=== PATIENT | female | born 1990 | race Caucasian/White ===

== ENCOUNTER → 2020-02-17 | Outpatient (CLI) | payer OTHER | LOC: COL.LAB 16:20 | DX: Z01.83 Encounter for blood typing (principal); O28.8 Other abnormal findings on antenatal screening of mother; R76.8 Other specified abnormal immunological findings in serum; Z3A.10 10 weeks gestation of pregnancy ==

== ENCOUNTER → 2020-06-30 | Outpatient (CLI) | payer OTHER ==
[~2020-06-30] MED LIST: CALCIUM CARBON650 M2; IBU800 M1 PO; NATURAL IRON65 MG; PRENATAL VITAMI1 TA3 PO; PROCARDIA XL90 MG PO; TYLENOL 500MG500 MG PO
== END ==
LOC: DIA.ED
DX: O24.419 Gestational diabetes mellitus in pregnancy, unspecified control (principal)
CPT/HCPCS: G0108

== ENCOUNTER → 2020-07-11 | Outpatient (CLI) | payer OTHER | LOC: DIA.ED | DX: O24.419 Gestational diabetes mellitus in pregnancy, unspecified control (principal) | CPT/HCPCS: G0108 ==

== ENCOUNTER → 2020-07-25 | Outpatient (CLI) | payer OTHER ==
--- NOTE | 2020-07-25 09:38 | NUR ---
Mailed Behavior change goals sheet to pt at home address.
== END ==
LOC: DIA.ED 08:24 → DIA.EDTELE 09:33
DX: O24.419 Gestational diabetes mellitus in pregnancy, unspecified control (principal)
CPT/HCPCS: G0108

== ENCOUNTER → 2020-08-04 | Outpatient (CLI) | payer OTHER | LOC: DIA.EDTELE 08:30 | DX: O24.419 Gestational diabetes mellitus in pregnancy, unspecified control (principal) | CPT/HCPCS: G0108 ==

== ENCOUNTER 2020-08-08 17:20 | Outpatient (CLI) | payer OTHER ==
[~2020-08-08] VITALS: Ht 157.5 cm; Wt 77.3 kg
[2020-08-08] MEDS ORDERED: NATURAL IRON65 MG (17:47)
[2020-08-08] MEDS ORDERED: PRENATAL VITAMI1 TA3 PO (17:47)
[2020-08-08] MEDS ORDERED: TYLENOL 500MG500 MG PO (17:48)
[2020-08-08] MEDS ORDERED: CALCIUM CARBON650 M2 (17:48)
[2020-08-08 17:58] LABS: COLLECTION METHOD CLEAN CATCH
[2020-08-08 18:00] VITALS: BP 132/84; PULSE 105; TEMP 98.8
--- NOTE | 2020-08-08 18:00 | NUR ---
1725- Pt arrives on unit ambulatory with complaints of elevated BP at work. She was nauseated and have diarrhea last night but that has resolved, appetite suppressed today. Pt states she also had some contractions yesterday and reports them to be occational now. Denies VB, LOF. +FM for both babies but states baby B is harder to feel due to anterior placenta. 1736- EFM and TOCO on and tracing. O2 sat monitor on and tracing maternal HR. Assessment completed. VSS. Plan of care discussed, questions answered. Ice water given. Call light within reach.
[2020-08-08 18:10] LABS: MUCOUS Present /lpf; PH 5 (5-8); URINE APPEARANCE Cloudy; URINE BACTERIA Rare /hpf; URINE BILIRUBIN Negative (NEGATIVE); URINE BLOOD 1+ (NEGATIVE); URINE COLOR Yellow; URINE GLUCOSE Negative (NEGATIVE); URINE KETONE Negative (NEGATIVE); URINE LEUKOCYTE ESTERASE Negative (NEGATIVE); URINE NITRATE Negative (NEGATIVE); URINE PROTEIN(semi-quant) 2+ (NEGATIVE); URINE UROBILINOGEN Negative (NEGATIVE)
[2020-08-08 18:12] LABS: HEMOGLOBIN 11.1 g/dl (12.5-16.0); MEAN CELL VOLUME 98 fl (80.0-100.0); MEAN CORPUSCULAR HEMOGLOBIN 33 pg (27.0-31.0); MEAN CORPUSCULAR HGB CONC 34 g/dl (33.0-37.0); MEAN PLATELET VOLUME 10.9 fl (7.4-10.4); PLATELET COUNT 151 K/mm3 (130-400); RED BLOOD COUNT 3.37 M/mm3 (4.10-5.30); REDCELL DISTRIBUTION WIDTH-CV 14.9 % (11.5-14.5)
[2020-08-08 18:13] LABS: HEMATOCRIT 32.9 % (37.0-47.0)
[2020-08-08 18:26] LABS: BILIRUBIN,TOTAL 0.7 mg/dL (0.0-1.0); CALCIUM 8.3 mg/dL (8.4-10.2); CREATININE, serum 1.05 (0.52-1.25); TOTAL PROTEIN 5.9 gm/dL (6.4-8.2)
[2020-08-08 18:45] LABS: BAND 2 % (0-10); HYPOCHROMIA 1+; LYMPHOCYTE 5 % (20.0-51.0); METAMYELOCYTE 1 % (0-0); MYELOCYTE 1 % (0-0); NEUTROPHILS 86 % (42.0-75.2); PLATELET ESTIMATE NORMAL (NORMAL)
[2020-08-08 19:00] VITALS: BP 121/83; PULSE 103
--- NOTE | 2020-08-08 19:10 | NUR ---
PATIENT AMBULATORY OFF THE UNIT WITH BY HER SIDE. ACCOMPANIED OFF UNIT BY THIS NURSE. PATIENT DISCHARGE INSTRUCTIONS EXPLAINED AND PATIENT VERBALIZED UNDERSTANDING WITH NO FURTHER QUESTIONS. ADVISED TO CALL US OR THE DOCTOR IF SHE HAS ANY FURTHER QUESTIONS OR CONCERNS.
== END 2020-08-08 19:10 | disposition home or self-care (01) ==
LOC: LDRO 17:20 → LDR 17:25 → LDRO 17:25 → LDR 19:10
PROVIDERS: Obstetrics & Gynecology
DX: O13.3 Gestational [pregnancy-induced] hypertension without significant proteinuria, third trimester (principal); Z3A.37 37 weeks gestation of pregnancy
CPT/HCPCS: OP

== ENCOUNTER 2020-08-24 10:42 | Inpatient (IN) | payer OTHER ==
[~2020-08-24] VITALS: Ht 160 cm; Wt 76.4 kg
[2020-08-24] VITALS (9 sets, daily range): BP systolic 134–167; BP diastolic 82–110; PULSE 71–96; TEMP 98.3–98.7
[~2020-08-24 10:42] MED LIST changes: -IBU800 M1 PO; -PROCARDIA XL90 MG PO
--- NOTE | 2020-08-24 19:25 | NUR ---
G1 at 37 weeks and 4 days arrives to unit ambulatory for scheduled induction of labor. Pt reports feeling good movement, denies contractions, vaginal bleeding, or LOF. Pt has 3+ pitting edema to lower extremeties which patient says has been going on since her third trimester. Denies headaches, blurry vision, or RUQ pain. Pt oriented to room, call light within reach, bed in low and locked position. Clean gown on. US and toco explained and applied. Admission assessment started. Vital signs obtained. SVE not performed due to history of being a difficult check and PO cytotec.
--- NOTE | 2020-08-24 20:00 | NUR ---
18 G IV started in left forearm with 1 attempt. Admission labs obtained off IV start. Lactated Ringers infusing to gravity. Consents reviewed and signed by patient and spouse. All questions answered.
--- NOTE | 2020-08-24 20:17 | NUR ---
Category 1 FHR tracing obtained x 2. 50 mcg oral cytotec given at this time.
[2020-08-24 20:54] LABS: HEMATOCRIT 37.3 % (37.0-47.0); HEMOGLOBIN 13.2 g/dl (12.5-16.0); MEAN CELL VOLUME 96 fl (80.0-100.0); MEAN CORPUSCULAR HEMOGLOBIN 34 pg (27.0-31.0); MEAN CORPUSCULAR HGB CONC 35 g/dl (33.0-37.0); MEAN PLATELET VOLUME 11.8 fl (7.4-10.4); PLATELET COUNT 191 K/mm3 (130-400); REDCELL DISTRIBUTION WIDTH-CV 15.1 % (11.5-14.5)
[2020-08-24 21:39] LABS: BAND 5 % (0-10); LYMPHOCYTE 26 % (20.0-51.0); NEUTROPHILS 61 % (42.0-75.2)
[2020-08-24 21:40] LABS: ANISOCYTOSIS 1+
[2020-08-24 21:44] LABS: COLLECTION METHOD CLEAN CATCH
[2020-08-24 21:50] LABS: MUCOUS Present /lpf; PH 5 (5-8); SQUAMOUS EPITHELIAL 0-2 /hpf; URINE APPEARANCE Clear; URINE BACTERIA Rare /hpf; URINE BILIRUBIN Negative (NEGATIVE); URINE BLOOD 1+ (NEGATIVE); URINE COLOR Yellow; URINE GLUCOSE Negative (NEGATIVE); URINE KETONE Negative (NEGATIVE); URINE LEUKOCYTE ESTERASE Negative (NEGATIVE); URINE NITRATE Negative (NEGATIVE); URINE PROTEIN(semi-quant) 3+ (NEGATIVE); URINE RBC 0-2 /hpf; URINE UROBILINOGEN Negative (NEGATIVE)
[2020-08-24 21:57] LABS: ALBUMIN 2.8 gm/dL (3.5-5.0); BILIRUBIN,TOTAL 0.2 mg/dL (0.0-1.0); CALCIUM 8.2 mg/dL (8.4-10.2); CREATININE, serum 1.11 (0.52-1.25); POTASSIUM 4.4 mmol/L (3.4-5.0)
--- NOTE | 2020-08-24 23:45 | NUR ---
Category 1 FHR tracing x 2. Pt requesting to be off monitor for extended time to perform self cares before bed. Monitors off at this time. Reviewed plan of care to resume monitoring after 30 minutes and prior to 2nd dose of cytotec.
[2020-08-25] VITALS (61 sets, daily range): BP systolic 104–168; BP diastolic 63–107; PULSE 72–162; TEMP 98.4–99.1
--- NOTE | 2020-08-25 00:24 | NUR ---
Category 1 FHR tracing x 2. Pt ruth irregular and reports only feeling mild period-like cramping. 25 mcg oral cytotec given.
--- NOTE | 2020-08-25 04:15 | NUR ---
0324 - Pt requesting epidural at this time. Clifford Casillas CRNA called, will come to bedside. 0400 - MAURICE Reynoso at bedside discussing epidural procedure, risks, and benefits. Pt verbalized understanding. Pt positioned to sitting on edge of bed. Difficuly tracing Baby A due to maternal positioning. 0415 - Test dose by MAURICE Reynoso. Pt denies any adverse reactions. 0425 - Pt positioned to left lateral for comfort. Discuss safety precautions, call light within reach, bed in low and locked position. See anesthesia record.
--- NOTE | 2020-08-25 05:20 | NUR ---
Quinn catheter placed at this time to dependent drainage. Clear, yellow urine returned. Secured to leg with statlock. SVE /-2
--- NOTE | 2020-08-25 05:30 | NUR ---
Category 1 FHR tracing x 2 obtained. Cervix unchanged from previous exam. Pitocin initiated at this time per protocol.
--- NOTE | 2020-08-25 09:25 | NUR ---
0925- Bilateral side lying hip release. 0940- Twin B, FHR decel from baseline 150bpm to 120bmp with spont. return to baseline. Ctx tracing intermittently, difficult to determine onset. RN at bedside adj EFM. Will cont. to monitor.
--- NOTE | 2020-08-25 11:50 | NUR ---
1150- Patient reports increased rectal pressure. SVE by this RN /+1. Dr. Dan updated on patient, see physician notification. 1206- EFM off and patient to OR suite via bed. 1210- EFM reapplied and tracing well. Patient educated on how to push with contractions. Patient verbalizes understanding. Dr. Dan at bedside. Flakita Casillas CRNA at bedside. Dr. Summers to bedside. Charge and nursery nurses notifed. 1219- Patient begins to push with contractions with Dr. Dan and this RN at bedside. Strong maternal effort, moves vertex. 1233- Pitocin to 16mu per Dr. Dan who remains at bedside and reviews strips. Patient cont. to push with contractions. Slow progress. 1259- Pitocin to 18mu per Dr. Dan who remains at bedside and reviews strips. 1313- Pitocin to 20mu per Dr. Smith who remains at bedside and reviews strips. See L&D flowsheet. Strong maternal effort, moves vertex, slow progress. 1334- Spontaneous vaginal delivery of viable male . Loose NC x1 and deliverys through. To mother's chest where dried and stimulated by nursery RN. EFM adjusted and FHR B tracing well. 1336- Cord clamped x2 and cut by father of . Care of assumed by Meghann Field RN. 1337- AROM at this time for twin B. Moderate amout of clear fluid noted. 1341- Patient pushing with contractions. Dr. Dan remains at bedside. Pitocin to 22mu per Dr. Dan. Contractions palpate mild every 3-4min. Straight cath at this time by Dr. Dan for 50ml clear yellow urine. 1403- Pitocin to 24mu per Dr. Dan who remains at bedside. Patient cont. to push with contractions. Strong maternal effort, slow progress. 1426- Pitocin to 26mu per Dr. Dan who remains at bedside and reviews strips. Contractions palpate mild to moderate every 2-4min. Straight cath by Dr. Dan for 0ml urine. 1450- Pitocin to 28mu per Dr. Dan who remains at bedside and reviews strips. Patient noted to doze between contractions and states she is fatigued. Patient continues to push with contractions with Dr. Dan at bedside, minimal progress. 1453- Dr. Dan consents patient for VAVD. Patient verbalizes understanding and agrees to proceed. See doctor dication. 1456- Vacuum applied to vertex by Dr. Dan. Patient pushing with contraction as traction applied to vertex by Dr. Dan. 1457- Pop off #1. 1459- Vacuum reapplied to vertex by Dr. Dan. Patient cont. to push with contractions as traction applied to vertex by Dr. Dan. Moves vertex. 1500- Pop off #2. Vacuum reapplied to vertex by Dr. Dan. 1501- Pop off #3. 1505- Vacuuum applied to vertex by Dr. Dan. Traction applied to vertex as patient pushes with contraction. Moves vertex well. 1506- VAVD of viable male . To mother's chest where dried and stimulated by nursery RN. Pitocin paused. 1508- Cord clamped x2 and cut by father of . Care of assumed by Nora Kellogg RN. 1517- Local by Dr. Dan to vaginal tissues. See emar. 3rd degree perineal laceration repaired by Dr. Dan. 1543- Edward extraction of placentas by Dr. Dan. Fundal massage, for large amout of bright red lochia. Fundus boggy, firms with massage. Dr. Dan remains at bedside and notified. 1545- Hemabate 250mcg to right thigh. See emar. Pulse ox applied. Maternal pulse 150's. 1546- Straight cath by provider. Large amout of bright red lochia continues. Fundal by Dr. Dan. 1551- 1000mcg cytotec rectal by Dr. Dan. See emar. PPH cart to bedside. special technical operations officer to bedside. 1600- Indwelling clemons catheter placed by Dr. Dan. Fundus firm, midline, and bleeding small to moderate. Ning hugger to patient. Dr. Jones remains at bedside. Mary care provided and patient repositioned in bed. 1605- Fundus firm, midline, and bleeding small. Okay to move patient to recovery per Dr. Dan. 1615- To LDR4 for recovery. Patient oriented to plan of care. Safety precautions reviewed. Denies questions or needs at this time. Call light within reach. See doctor dictation, anesthesia record, and nurses notes.
[2020-08-25 16:12] LABS: HEMATOCRIT 33.7 % (37.0-47.0); HEMOGLOBIN 11.5 g/dl (12.5-16.0)
--- NOTE | 2020-08-25 19:00 | NUR ---
1900- PT WANTS TO TRY . SHE IS SITTING UP IN BED AND LOOKS QUITE PALE. STATES SHE IS VERY TIRED AND DIZZY WITH SITTING UP. WHEN NURSE ASKS IF SHE FEELS UP TO TRY , PT STARTS CRYING AND STATES THAT SHE DOESN'T BUT SHE FEELS LIKE SHE HAS TO. REASSURED PT THAT IF SHE WAS OK WITH IT, WE COULD FEED BABY SOME FORMULA UNTIL SHE IS FEELING BETTER AND CAN PARTICIPATE IN WITHOUT BEING DIZZY. PT AGREES WITH THIS PLAN OF CARE. BABY TO NURSERY SO PT CAN REST.
--- NOTE | 2020-08-25 19:40 | NUR ---
194- PT AND SLEEPING QUIETLY.
--- NOTE | 2020-08-25 20:30 | NUR ---
2030- PERICARE WITH CLEAN PAD, UNDERBUTT PAD PROVIDED. PT WANTING TO GO BACK TO SLEEP. DENIES FURTHER NEEDS. 5- VSS. BLEEDING SMALL WITH FIRM FUNDUS. PAIN MEDICATION PROVIDED REQUESTED. IV TO SALINE LOCK. DISCUSSED DANGLING AT NEXT VITAL SIGNS AND PT IS OK WITH THIS PLAN OF CARE. PT AND DESIRE TO REST AT THIS TIME.
[2020-08-26 03:30] VITALS: BP 146/83; PULSE 108
--- NOTE | 2020-08-26 03:30 | NUR ---
0330- PT CALLS OUT AND WANTS TO USE BATHROOM. STATES SHE THINKS SHE MIGHT NEED TO HAVE A BM. PT ASSISTED TO DANGLE AT SIDE OF BED. STATES SHE IS VERY DIZZY. DIZZINESS STILL PRESENT AFTER SITTING 5 MIN SO PT ENCOURAGED TO TRY COMMODE. PT AGREEABLE TO THIS. PT ASSISTED TO COMMODE. SHE IS UNABLE TO HAVE BM AT THIS TIME. PERICARE AND CLEAN PAD PROVIDED. CURRIE STILL DRAINING CLEAR URINE. VAGINAL BLEEDING WNL WITH NO CLOTS. 0345- PT ASSISTED BACK INTO BED AND POSITIONED FOR COMFORT. SHE DENIES FURTHER NEEDS AT THIS TIME.
[2020-08-26 07:14] LABS: BASO # 0.1 (0.0-0.2); BASO % 0.4 % (0.0-2.0); EOS % 0.1 % (0-4.0); GRAN # 12.8 (1.4-6.5); GRAN % 76.6 % (42.2-75.2); LYMPH # 2.8 (1.2-3.4); LYMPH % 16.5 % (20.0-51.0); MEAN CELL VOLUME 96 fl (80.0-100.0); MEAN CORPUSCULAR HGB CONC 35 g/dl (33.0-37.0); MEAN PLATELET VOLUME 11.6 fl (7.4-10.4); MONO # 0.9 (0.1-0.6); MONO % 5.3 % (1.7-9.3); PLATELET COUNT 126 K/mm3 (130-400); RED BLOOD COUNT 2.46 M/mm3 (4.10-5.30); REDCELL DISTRIBUTION WIDTH-CV 15.7 % (11.5-14.5)
[2020-08-26 07:20] LABS: HEMATOCRIT 23.6 % (37.0-47.0); HEMOGLOBIN 8.2 g/dl (12.5-16.0); MEAN CORPUSCULAR HEMOGLOBIN 33 pg (27.0-31.0)
[2020-08-26 08:00] VITALS: BP 157/96; PULSE 82; TEMP 97.8
[2020-08-26 11:30] VITALS: BP 141/86; PULSE 90; TEMP 98.4
[2020-08-26 16:30] VITALS: BP 131/95; PULSE 80; TEMP 98.1
[2020-08-26 21:00] VITALS: BP 150/93; PULSE 98; TEMP 98.1
--- NOTE | 2020-08-26 21:00 | NUR ---
2100- WITH ASSESSMENT PT COMPLAINS OF LEAKING FLUID AT EPIDURAL SITE. SEROUS FLUID NOTED ON GOWN AND BANDAID, SLIGHTLY PINK IN COLOR. NEW GAUZE AND BANDAID APPLIED. INFORMED PT THAT IT IS PROBABLY DUE TO HER SWELLING BUT WILL NOTIFY ANESTHESIA TO BE SURE. 2214- JOHNSON Naranjo SUPPLY ASSISTANT NOTIFIED OF DRAINAGE FROM PT'S EPIDURAL SITE AND GENERALIZED SWELLING. SHE AGREES THAT THE DRAINAGE IS DUE TO THE PT'S GENERAL EDEMA AND NOT FROM THE EPIDURAL PROCEDURE ITSELF. SUGGESTED TO CONTINUE TO MONITOR DRAINAGE FOR SIGNS OF INFECTION. 2249- NEW DRESSING APPLIED TO EPIDURAL SITE AGAIN. INFORMED PT THAT ANESTHESIA HAD BEEN NOTIFIED OF DRAINAGE AND ALSO FELT THAT IT WAS DUE TO HER GENERAL EDEMA AND THAT WE WOULD MONITOR FOR INFECTION. PT VERBALIZES UNDERSTANDING.
[2020-08-27] VITALS (16 sets, daily range): BP systolic 137–171; BP diastolic 85–105; PULSE 76–99; TEMP 97.5–98.3
[2020-08-27 07:41] LABS: MEAN CELL VOLUME 100 fl (80.0-100.0); MEAN CORPUSCULAR HGB CONC 34 g/dl (33.0-37.0); MEAN PLATELET VOLUME 10.4 fl (7.4-10.4); PLATELET COUNT 144 K/mm3 (130-400); RED BLOOD COUNT 2.17 M/mm3 (4.10-5.30); REDCELL DISTRIBUTION WIDTH-CV 16.1 % (11.5-14.5)
[2020-08-27 07:46] LABS: HEMATOCRIT 21.7 % (37.0-47.0); HEMOGLOBIN 7.3 g/dl (12.5-16.0); MEAN CORPUSCULAR HEMOGLOBIN 34 pg (27.0-31.0)
[2020-08-27 07:49] LABS: ALANINE AMINOTRANSFERASE 35 U/L (4-34); ALBUMIN 2.1 gm/dL (3.5-5.0); ALKALINE PHOSPHATASE 248 U/L (50-136); ANION GAP 3 mmol/L (7-16); AST,SGOT 98 U/L (15-37); BILIRUBIN,TOTAL < 0.1 mg/dL (0.0-1.0); BLOOD UREA NITROGEN 24 mg/dL (7-17); CALCIUM 7.6 mg/dL (8.4-10.2); CARBON DIOXIDE 25 mmol/L (22-30); CHLORIDE 112 mmol/L (98-107); CREATININE, serum 1.14 (0.52-1.25); GLUCOSE 71 mg/dL (74-106); POTASSIUM 4.3 mmol/L (3.4-5.0); SODIUM 139 mmol/L (137-145); TOTAL PROTEIN 4.8 gm/dL (6.4-8.2)
[2020-08-27 09:36] LABS: ANISOCYTOSIS 1+; BAND 1 % (0-10); BASOPHIL 1 % (0-2); LYMPHOCYTE 16 % (20.0-51.0); MYELOCYTE 2 % (0-0); NEUTROPHILS 75 % (42.0-75.2); NUCLEATED RED BLOOD CELL 2 (0-6); PLATELET ESTIMATE NORMAL (NORMAL)
--- NOTE | 2020-08-27 12:21 | NUR ---
PT WANTING TO GO AHEAD WITH BLOOD TRANSFUSION. CALLED BLOOD BANK TO PLACE ORDER AND SPOKE WITH VINNY IN BLOOD BANK.
[2020-08-28 07:08] LABS: MEAN CORPUSCULAR HGB CONC 34 g/dl (33.0-37.0); MEAN PLATELET VOLUME 9.6 fl (7.4-10.4); PLATELET COUNT 146 K/mm3 (130-400); REDCELL DISTRIBUTION WIDTH-CV 17.1 % (11.5-14.5)
[2020-08-28 07:18] LABS: ALBUMIN 2.5 gm/dL (3.5-5.0); BILIRUBIN,TOTAL 0.2 mg/dL (0.0-1.0); CREATININE, serum 0.86 (0.52-1.25); POTASSIUM 3.9 mmol/L (3.4-5.0); TOTAL PROTEIN 5.3 gm/dL (6.4-8.2)
[2020-08-28 07:19] LABS: HEMATOCRIT 29.3 % (37.0-47.0); HEMOGLOBIN 9.9 g/dl (12.5-16.0); MEAN CELL VOLUME 95 fl (80.0-100.0); MEAN CORPUSCULAR HEMOGLOBIN 32 pg (27.0-31.0)
[2020-08-28 07:42] LABS: BAND 7 % (0-10); EOSINOPHIL 2 % (0-4); LYMPHOCYTE 19 % (20.0-51.0); METAMYELOCYTE 1 % (0-0); NEUTROPHILS 69 % (42.0-75.2)
[2020-08-28 07:43] LABS: ANISOCYTOSIS 1+; PLATELET ESTIMATE NORMAL (NORMAL)
[2020-08-28 07:44] LABS: SCHISTOCYTES 1+
[2020-08-28 08:51] VITALS: BP 137/96; PULSE 86; TEMP 98
[2020-08-28] MEDS ORDERED: IBU800 M1 PO (11:47)
[2020-08-28] MEDS ORDERED: PROCARDIA XL90 MG PO (11:49)
== END 2020-08-28 14:00 | disposition home or self-care (01) | DRG 768 ==
LOC: OB 10:42 → LDR 19:17 → OB 08-26 16:30
PROVIDERS: Obstetrics & Gynecology; ADMIT Student in an Organized Health Care Education/Training Program
PROC: 10E0XZZ Delivery of Products of Conception, External Approach (ICD-10-PCS; principal; 2020-08-25)
PROC: 0DQR0ZZ Repair Anal Sphincter, Open Approach (ICD-10-PCS; 2020-08-25)
PROC: 10907ZC Drainage of Amniotic Fluid, Therapeutic from Products of Conception, Via Natural or Artificial Opening (ICD-10-PCS; 2020-08-25)
PROC: 3E0P7VZ Introduction of Hormone into Female Reproductive, Via Natural or Artificial Opening (ICD-10-PCS; 2020-08-25)
PROC: 3E033VJ Introduction of Other Hormone into Peripheral Vein, Percutaneous Approach (ICD-10-PCS; 2020-08-25)
PROC: 10D17ZZ Extraction of Products of Conception, Retained, Via Natural or Artificial Opening (ICD-10-PCS; 2020-08-25)
PROC: 10D07Z6 Extraction of Products of Conception, Vacuum, Via Natural or Artificial Opening (ICD-10-PCS; 2020-08-25)
DX: O30.043 Twin pregnancy, dichorionic/diamniotic, third trimester (principal); Z37.2 Twins, both liveborn; O70.20 Third degree perineal laceration during delivery, unspecified; O72.1 Other immediate postpartum hemorrhage; D62 Acute posthemorrhagic anemia; O14.94 Unspecified pre-eclampsia, complicating childbirth; O24.420 Gestational diabetes mellitus in childbirth, diet controlled; O26.893 Other specified pregnancy related conditions, third trimester; Z3A.37 37 weeks gestation of pregnancy; O43.193 Other malformation of placenta, third trimester; O32.8XX2 Maternal care for other malpresentation of fetus, fetus 2; O69.81X1 Labor and delivery complicated by cord around neck, without compression, fetus 1
CPT/HCPCS: J0360; J0690; J1200; J2270; J2400; J2405; J2590; J2791; J7050; J7120; P9016